=== PATIENT | female | born 1975 | race Hispanic/Latino ===

== ENCOUNTER 2020-05-22 15:12 | Emergency (ER) | payer OTHER ==
[2020-05-22] MEDS ORDERED: Acetaminophen 500 MG TAB ONE (15:44)
[2020-05-23 13:25] LABS: SARS-CoV-2 MS2 Positive; SARS-CoV-2 N Gene Negative; SARS-CoV-2 S Gene Negative; SARS-CoV-2 by NAA Not Detected (NotDetected); SARS-CoV-2 orf1ab Negative
== END 2020-05-22 16:25 | disposition home or self-care (01) ==
LOC: NAV ERS 15:12
DX: Z20.828 Contact with and (suspected) exposure to other viral communicable diseases (principal)
CPT/HCPCS: 87635; 99283; U0003